=== PATIENT | male | born 1970 ===

== ENCOUNTER 2024-02-05 10:22 | Outpatient (AMB) | payer OTHER, SELFPAY ==
--- NOTE | 2024-02-05 10:27 | A.OFFVIS_ITS ---
Vital Signs 3 02/05/24 10:48 BMI Reason not done Patient refused/unable BP 139/81 Blood Pressure Location Rt brachial Position Sitting Intake Visit Reasons: Mole on back Intake Note: Patient here from [facility] [place]. Referred for mole on back. Patient c/o: denies pain, bleeding, irritation. No family hx of skin CA. Quality Lab Technician Required: No Accompanied by: Karyna from [facility] [place] Allergies No Known Allergies Allergy (Verified 02/05/24 10:33) Medication List - Last Reconciled 02/05/24 by David Ohara MD acetaminophen 325 mg PO QID PRN atorvastatin (Lipitor) 10 mg PO BEDTIME benztropine 1 mg PO DAILY bisacodyl 10 mg NV DAILY PRN cocoa butter-shark liver oil 1 supp NV BID diazepam 2 mg PO BEDTIME PRN perphenazine 8 mg PO BID risperidone 3 mg PO BEDTIME sennosides (senna) 8.6 mg PO BEDTIME sodium phosphates 19-7 gram/118 mL (Fleet Enema) 118 mL NV BEDTIME PRN HPI Comments Details: 54-year-old male patient with past history of paranoid schizophrenia, hyperlipidemia, presenting with a dark mole of his right back. He is uncertain how long this lesion has been present and denies any ongoing symptoms including pain, discharge or bleeding. He denies a previous history of skin cancers and there is no apparent family history of skin cancer. [facility] Medical History Primary optic atrophy, bilateral Age-related nuclear cataract, bilateral Encephalopathy Complete traumatic metacarpophalangeal amputation of unspecified finger, initial encounter Presbyopia Hyperlipidemia, unspecified Schizophrenia Family History Mother No problems noted. Social History Housing: Group Home Housing Other:: [facility] [place] Do you presently have visiting nurse or other home services: Yes Alcohol intake: unknown Patient Tobacco Use Status: Tobacco use Unknown Review of Systems Const Unobtainable due to mental condition Physical Exam Vital Signs: Last Vital Signs BP 139/81 02/05/24 10:48 Const General: no acute distress Nutritional Appearance: well nourished Resp Effort & Inspection: normal respiratory effort, no audible wheezes, no cough and no respiratory distress GI Inspection: Yes normal to inspection Skin Other: Right back with a 5 mm, symmetrical brown lesion without ulceration or bleeding, non variegated pattern. Assessment & Plan Assessment & Plan (1) Melanocytic nevus of skin: Code(s): D22.9 - Melanocytic nevi, unspecified Category: Medical Plan 54-year-old male patient with a melanotic nevus of the mid right back measuring approximately 5 mm in size. It is difficult to say how long this has been present. The color pattern is even margins are symmetrical. I offered excision of this lesion for diagnosis however the patient refuses biopsy at this time. Excision could be performed either under local anesthesia or with general anesthesia based on the patient's preference. He is welcome to return with any changes or if he changes his mind regarding surgery. Coding Level of Care Code New Pt Level 4 (46421) Diagnoses Melanocytic nevus of skin D22.9
[2024-02-05 10:48] VITALS: BP 139/81
== END 2024-02-05 10:56 | disposition home or self-care (01) ==
PROVIDERS: Visit Provider Surgery
DX: D22.9 Melanocytic nevi, unspecified (principal)
CPT/HCPCS: 99204

== ENCOUNTER → 2024-02-05 10:22 | Outpatient (BNVA) | payer OTHER, SELFPAY | PROVIDERS: Visit Provider Surgery | DX: D22.5 Melanocytic nevi of trunk (principal) | CPT/HCPCS: 99202 ==